=== PATIENT | female | born 1975 | race Caucasian/White ===

== ENCOUNTER 2019-02-07 20:12 | Emergency (ER) | payer OTHER ==
[~2019-02-07] VITALS: Ht 152.4 cm; Wt 66.2 kg
[2019-02-07 20:20] VITALS: BP 137/85
--- NOTE | 2019-02-07 20:23 | NUR ---
TO LOBBY A/W BED AMBULATORY
--- NOTE | 2019-02-07 21:08 | NUR ---
43 Y/O F PRESENTS TO ER C/O SUBJECTIVE FEVER, SORE THROAT, N/V/D, ABDOMINAL PAIN AND COUGH X 1 MONTH. PT CURRENT TEMPERATURE 98.9. PAIN LEVEL 10/10 PAIN TO ABDOMEN. PER PT SHE CAN'T HOLD ANYTHING DOWN, FOOD OR LIQUIDS. PT STATES SHE DOES NOT HAVE PCP TO FOLLOW UP CARE. ALLERGIES: NKA MED HX: NONE
[2019-02-07] MEDS ORDERED: KETOROLAC 60 MG/2 ML VIAL IM ONE (21:30)
--- NOTE | 2019-02-07 22:28 | NUR ---
Patient discharged with v/s stable. Written and verbal after care instructions given and explained. Pt encouraged to follow up with primary care provider in 2-3 days. Patient alert, oriented and verbalized understanding of instructions. Ambulatory with steady gait. All questions addressed prior to discharge. ID band removed. Patient advised to follow up with PMD. Rx of zofran 4mg, tylenol 500mg and clotrimazole yash 10mg was given. Patient educated on indication of medication including possible reaction and side effects. Opportunity to ask questions provided and answered.
[2019-02-07 22:29] VITALS: BP 125/80
== END 2019-02-07 22:29 | disposition home or self-care (01) ==
LOC: MED 20:12
DX: B37.0 Candidal stomatitis (principal); J06.9 Acute upper respiratory infection, unspecified; F17.210 Nicotine dependence, cigarettes, uncomplicated; Z90.49 Acquired absence of other specified parts of digestive tract
CPT/HCPCS: 71046; 96372; 99283; J1885